=== PATIENT | female | born 1950 | race Caucasian/White ===

== ENCOUNTER → 2018-02-04 | Day surgery (SDC) | payer OTHER, MEDICARE ==
--- NOTE | 2018-02-09 11:49 | PATH ---
Surgical Pathology Report Patient Name: PARESH PINA [facility]. Rec. #: [id number] /Age/Gender: 1950 (Age: 67) / F Account: [id number] [facility] Taken: 02/04/2018 Received: 02/04/2018 Reported: 02/09/2018 Physicians: Babak Wallace M.D. Specimen(s) Received LEFT BREAST SPECIMEN WITHOUT CALCIFICATIONS Clinical History Nonpalpable lesion Mammographic findings: Microcalcification, suspicious Final Diagnosis BREAST, LEFT, WITHOUT CALCIFICATIONS, STEREOTACTIC BIOPSY: BENIGN BREAST TISSUE SHOWING FIBROADENOMATOID CHANGE AND STROMAL FIBROSIS. Electronically Signed Monet Fontenot M.D. Gross Description Received in formalin labeled "left breast without calcifications," is a 3.5 x 3.0 x 0.4 cm aggregate of ortiz-yellow, irregular to cylindrical portions of fibroadipose tissue. The formalin is filtered and the specimen is entirely submitted in 2 cassettes. Time to formalin fixation: 5 minutes Total formalin fixation time: Approximately 8 hours. /02/05/2018 saudi02/05/2018
== END | disposition home or self-care (01) ==
LOC: FMAMMOTONE 08:39
PROVIDERS: ATTEND Surgery Surgical Oncology
PROC: 0HBU3ZX Excision of Left Breast, Percutaneous Approach, Diagnostic (ICD-10-PCS; principal; 2018-02-04)
DX: N60.32 Fibrosclerosis of left breast (principal); N64.89 Other specified disorders of breast; R92.1 Mammographic calcification found on diagnostic imaging of breast
CPT/HCPCS: 19081; 87899; 88305-TC; A4648